=== PATIENT | male | born 1945 | race Caucasian/White ===

== ENCOUNTER 2017-07-12 10:18 | Emergency (ER) | payer MEDICARE ==
[2017-07-12 10:42] VITALS: BP 146/72
--- NOTE | 2017-07-12 11:26 | EDM.PDOC ---
ED HPI GENERAL MEDICAL PROBLEM - General Chief Complaint: Lower Extremity Injury/Pain Stated Complaint: LEFT HIP PAIN Time Seen by Provider: 07/12/17 11:17 Source of Information: Reports: Patient, RN Notes Reviewed History Limitations: Reports: No Limitations - History of Present Illness INITIAL COMMENTS - FREE TEXT/NARRATIVE: 72-year-old gentleman presents emergency department day complaint of left hip pain, he states he may have had a twisting injury but denies any specific trauma no numbness and tingling in the foot he can ambulate uses hydrocodone to control the pain Left Hip Pain Score (Numeric/FACES): 6 - Related Data Allergies Allergy/AdvReac Type Severity Reaction Status Date / Time codeine Allergy Rash Verified 03/16/16 10:57 Home Meds: Home Meds Amiodarone HCl [Pacerone] 200 mg PO DAILY 07/20/13 [History] Amphetamine/Dextroamphetamine [Adderall XR] 10 mg PO DAILY 07/20/13 [History] Hydrocodone/Acetaminophen [Hydrocodon-Acetaminophn 10-325] 1 each PO TID PRN [History] Mirtazapine 45 mg PO BEDTIME 07/20/13 [History] Pregabalin [Lyrica] 150 mg PO DAILY 01/08/15 [History] ARIPiprazole [Abilify] 20 mg PO DAILY 03/16/16 [History] Albuterol Sulfate [Proair Respiclick] 90 mcg IH PRN 03/16/16 [History] Ascorbic Acid [Vitamin C] 1,000 mg PO DAILY 03/16/16 [History] Cholecalciferol (Vitamin D3) [Vitamin D3] 2,000 unit PO DAILY 03/16/16 [History] Dabigatran [Pradaxa] 150 mg PO BID 03/16/16 [History] Tiotropium [Spiriva Handihaler] 18 mcg INH DAILY 03/16/16 [History] ClonazePAM [KlonoPIN] 1 mg PO BEDTIME 03/17/16 [History] Tamsulosin [Flomax] 0.8 mg PO DAILY #14 cap.er 03/17/16 [Rx] Venlafaxine [Effexor XR] 300 mg PO DAILY #14 cap.er 03/17/16 [Rx] Past Medical History HEENT History: Reports: Impaired Vision Cardiovascular History: Reports: Arrhythmia Other Cardiovascular History: Cardiac Abalation. Atrial fibrillation Respiratory History: Reports: Bronchitis, Recurrent, COPD Other Respiratory History: Intubation, aspiration pneumonia 2013 Gastrointestinal History: Reports: Chronic Constipation Other Gastrointestinal History: Colitis Genitourinary History: Reports: Prostate Disorder Musculoskeletal History: Reports: Back Pain, Chronic Other Musculoskeletal History: Neuropathy Neurological History: Reports: Neuropathy, Peripheral Psychiatric History: Reports: Addiction, Bipolar, Depression Other Psychiatric History: Alcohol dependence, withdrawal Hematologic History: Reports: Anticoagulation Therapy Other Hematologic History: Takes pradaxa Oncologic (Cancer) History: Reports: Lung, Prostate - Past Surgical History HEENT Surgical History: Reports: Other (See Below) Social & Family History - Family History Cardiac: Reports: Hypertension, [place] Psychiatric: Reports: Depression Oncologic: Reports: Lung - Tobacco Use Smoking Status *Q: Light Tobacco Smoker Years of Tobacco use: 50 Packs/Tins Daily: 0.5 Used Tobacco, but Quit: No Second Hand Smoke Exposure: Yes - Caffeine Use Caffeine Use: Reports: None - Alcohol Use Days Per Week of Alcohol Use: 7 Number of Drinks Per Day: 6 Total Drinks Per Week: 42 - Recreational Drug Use Recreational Drug Use: No Recreational Drug Type: Reports: Amphetamines (Speed) Review of Systems - Review of Systems Review Of Systems: See Below Constitutional: Reports: No Symptoms Respiratory: Reports: No Symptoms Cardiovascular: Reports: No Symptoms Musculoskeletal: Reports: Joint Pain ED EXAM, GENERAL - Physical Exam Exam: See Below Free Text/Narrative:: Examination of the left hip I don't appreciate any erythema or edema over the hip he is tender to palpation superior to the greater trochanter there is no tenderness with internal or external rotation. Course - Vital Signs Last Recorded V/S: Last Vital Signs Temp 95.9 F 07/12/17 10:42 Pulse 93 07/12/17 10:42 Resp 16 07/12/17 10:42 BP 146/72 H 07/12/17 10:42 Pulse Ox 98 07/12/17 10:42 Departure - Departure Time of Disposition: 13:04 Disposition: Home, Self-Care 01 Condition: Good Clinical Impression: Strain of left hip Qualifiers: Encounter type: initial encounter Qualified Code(s): S76.012A - Strain of muscle, fascia and tendon of left hip, initial encounter - Discharge Information Referrals: Lazaro Gaxiola MD [Primary Care Provider] - Forms: ED Department Discharge Additional Instructions: Use ibuprofen for baseline pain control, use hydrocodone as needed for breakthrough pain, Please followup with your primary care provider in 3-5 days if not better, please call return to the emergency department with worsening of symptoms. - Assessment/Plan Plan: Assessment Acuity = acute Site and laterality = left hip strain Etiology = secondary to twisting injury Manifestations = pain Location of injury = Home Lab values = x-ray shows minimal degenerative joint disease Plan I did review films with him provided him 10 hydrocodone 5/325 one tablet every 6 hours as needed Patient was in agreement with the plan all questions were answered, they were instructed to return to the emergency department or call for worsening symptoms. This note was dictated using [employer] voice recognition software please call with any questions.
--- NOTE | 2017-07-12 11:49 | CR ---
Hip Min 2V or 3V Lt HISTORY: Pain COMPARISON: CT scan 2012. FINDINGS: Minimal degenerative change. Good joint space preservation. There is no acute fracture or d islocation.
== END 2017-07-12 13:27 | disposition home or self-care (01) ==
LOC: JP.ED 10:18
DX: S76.012A Strain of muscle, fascia and tendon of left hip, initial encounter (principal); I48.91 Unspecified atrial fibrillation; J44.9 Chronic obstructive pulmonary disease, unspecified; G62.9 Polyneuropathy, unspecified; F31.9 Bipolar disorder, unspecified; F17.210 Nicotine dependence, cigarettes, uncomplicated; Z85.118 Personal history of other malignant neoplasm of bronchus and lung; Z85.46 Personal history of malignant neoplasm of prostate; Z79.899 Other long term (current) drug therapy; Z88.5 Allergy status to narcotic agent; W18.40XA Slipping, tripping and stumbling without falling, unspecified, initial encounter; Y92.009 Unspecified place in unspecified non-institutional (private) residence as the place of occurrence of the external cause
CPT/HCPCS: 73502-26-LT; 73502-LT; 99284

== ENCOUNTER 2020-04-25 08:30 | Emergency (ER) | payer OTHER, MEDICARE ==
--- NOTE | 2020-04-25 08:59 | EDM.PDOC ---
ED HPI GENERAL MEDICAL PROBLEM - General Chief Complaint: Cardiovascular Problem Stated Complaint: CHEST PAIN Time Seen by Provider: 04/25/20 08:59 Source of Information: Reports: Patient History Limitations: Reports: No Limitations - History of Present Illness INITIAL COMMENTS - FREE TEXT/NARRATIVE: pt arrived with a history of chest pain 2 days ago. He has no pain today. [facility] be [facility]. He has a history of atrial fib and he has had 2 ablations for that. Onset: Other (pt had the chest pain 2 days ago. ) Duration: Hour(s): Location: Reports: Chest Associated Symptoms: Reports: Chest Pain, Shortness of Breath, Other (pt has copd and a history of atrial fib. ) - Related Data Allergies Allergy/AdvReac Type Severity Reaction Status Date / Time codeine Allergy Rash Verified 04/25/20 08:56 Home Meds: Home Meds Amiodarone HCl [Pacerone] 200 mg PO DAILY 07/20/13 [History] Amphetamine/Dextroamphetamine [Adderall XR] 10 mg PO DAILY 07/20/13 [History] Mirtazapine 45 mg PO BEDTIME 07/20/13 [History] Pregabalin [Lyrica] 100 mg PO TID 01/08/15 [History] ARIPiprazole [Abilify] 10 mg PO DAILY 03/16/16 [History] Albuterol Sulfate [Proair Respiclick] 90 mcg IH ASDIRECTED PRN 03/16/16 [History] Dabigatran [Pradaxa] 150 mg PO BID 03/16/16 [History] Tiotropium [Spiriva Handihaler] 18 mcg INH DAILY 03/16/16 [History] Tamsulosin [Flomax] 0.8 mg PO DAILY #14 cap.er 03/17/16 [Rx] Venlafaxine [Effexor XR] 300 mg PO DAILY #14 cap.er 03/17/16 [Rx] Hydrocodone/Acetaminophen [Hydrocodon-Acetaminoph 7.5-325] 2 each PO TID 04/25/20 [History] Past Medical History HEENT History: Reports: Impaired Vision Cardiovascular History: Reports: Arrhythmia Other Cardiovascular History: Cardiac Abalation. Atrial fibrillation Respiratory History: Reports: Bronchitis, Recurrent, COPD Other Respiratory History: Intubation, aspiration pneumonia 2012 Gastrointestinal History: Reports: Chronic Constipation Other Gastrointestinal History: Colitis Genitourinary History: Reports: Prostate Disorder Musculoskeletal History: Reports: Back Pain, Chronic Other Musculoskeletal History: Neuropathy Neurological History: Reports: Neuropathy, Peripheral Psychiatric History: Reports: Addiction, Bipolar, Depression Other Psychiatric History: Alcohol dependence, withdrawal Hematologic History: Reports: Anticoagulation Therapy Other Hematologic History: Takes pradaxa Oncologic (Cancer) History: Reports: Lung, Prostate - Past Surgical History HEENT Surgical History: Reports: Other (See Below) Social & Family History - Family History Cardiac: Reports: Hypertension, [place] Psychiatric: Reports: Depression Oncologic: Reports: Lung - Caffeine Use Caffeine Use: Reports: None ED ROS GENERAL - Review of Systems Review Of Systems: See Below Constitutional: Reports: No Symptoms HEENT: Reports: No Symptoms Respiratory: Reports: Shortness of Breath, Wheezing Cardiovascular: Reports: Chest Pain, Dyspnea on Exertion, Other (history of atrial fib. ) Endocrine: Reports: No Symptoms GI/Abdominal: Reports: No Symptoms : Reports: No Symptoms Musculoskeletal: Reports: No Symptoms Skin: Reports: No Symptoms Neurological: Reports: No Symptoms ED EXAM, GENERAL - Physical Exam Exam: See Below Free Text/Narrative:: pt arrived with a history of chest pain 2-3 days ago. This did last about 5 minutes. He has not had recurrent Exam Limited By: No Limitations General Appearance: Alert, Mild Distress Ears: Normal TMs Nose: Normal Inspection Throat/Mouth: Normal Inspection Head: Atraumatic Neck: Normal Inspection Respiratory/Chest: No Respiratory Distress, Other (pt does have rhonchi and wheezing bilateral. ) Cardiovascular: Irregularly Irregular GI/Abdominal: Soft, Non-Tender (Male) Exam: Deferred Rectal (Males) Exam: Deferred Back Exam: Normal Inspection Extremities: Normal Inspection, Other (pt has edema) Neurological: Alert, Oriented, Normal Cognition Psychiatric: Normal Affect Course - Vital Signs Last Recorded V/S: Last Vital Signs Temp 36.7 C 04/25/20 08:53 Pulse 81 04/25/20 08:53 Resp 19 04/25/20 08:53 BP 113/62 04/25/20 08:53 Pulse Ox 99 04/25/20 08:53 - Orders/Labs/Meds Orders: Active Orders 24 hr Category Date Time Status EKG Documentation Completion [RC] ASDIRECTED Care 04/25/20 08:48 Active RT Aerosol Therapy [RC] ASDIRECTED Care 04/25/20 10:24 Active Chest 1V Frontal [CR] Stat Exams 04/25/20 09:23 Taken EKG 12 Lead [EK] Routine Ther 04/25/20 08:48 Ordered Labs: Laboratory Tests 04/25/20 04/25/20 04/25/20 Range/Units 08:59 08:59 08:59 WBC 6.3 (4.5-11.0) K/uL RBC 3.87 L (4.30-5.90) M/uL Hgb 12.2 (12.0-15.0) g/dL Hct 39.0 L (40.0-54.0) % MCV 101 H (80-98) fL MCH 32 H (27-31) pg MCHC 31 L (32-36) % Plt Count 204 (150-400) K/uL Neut % (Auto) 71 H (36-66) % Lymph % (Auto) 16 L (24-44) % [place] % (Auto) 9 H (2-6) % Eos % (Auto) 3 (2-4) % Baso % (Auto) 1 (0-1) % Sodium 142 (140-148) mmol/L Potassium 4.5 (3.6-5.2) mmol/L Chloride 104 (100-108) mmol/L Carbon Dioxide 31 (21-32) mmol/L Anion Gap 7.3 (5.0-14.0) mmol/L BUN 19 H (7-18) mg/dL Creatinine 1.7 H D (0.8-1.3) mg/dL Est Cr Clr Drug Dosing 42.48 mL/min Estimated GFR (MDRD) 40 L (>60) Glucose 200 H (74-106) mg/dL Calcium 8.6 (8.5-10.1) mg/dL Total Bilirubin 0.4 (0.2-1.0) mg/dL AST 13 L (15-37) U/L ALT 26 (12-78) U/L Alkaline Phosphatase 98 (46-116) U/L Troponin I < 0.017 (0.000-0.056) ng/mL NT-Pro-B Natriuret Pep 322 H (5-125) pg/mL Total Protein 6.8 (6.4-8.2) g/dL Albumin 3.2 L (3.4-5.0) g/dL Globulin 3.6 H (2.3-3.5) g/dL Albumin/Globulin Ratio 0.9 L (1.2-2.2) Meds: Medications Discontinued Medications Generic Name Dose Route Start Last Admin Trade Name Rahel PRN Reason Stop Dose Admin Albuterol 2.5 mg 04/25/20 10:24 04/25/20 10:46 Proventil Neb Soln NEB 04/25/20 10:25 2.5 mg ONETIME ONE Administration - Re-Assessments/Exams Free Text/Narrative Re-Assessment/Exam: 04/25/20 10:47 pt has continued to have no pain. He had a trop that was neg. His ekg showed atrial fib with a controlled response. Pt did have a bs of 200. He has not been taking any diabetic meds and following a diet or checking his sugars. 04/25/20 10:49 Departure - Departure Time of Disposition: 10:51 Disposition: Home, Self-Care 01 Condition: Fair Clinical Impression: Chest pain, SOB (shortness of breath) on exertion Referrals: Lazaro Gaxiola MD [Primary Care Provider] - Forms: ED Department Discharge Care Plan Goals: follow up appt at the [facility] regarding his diabetic care, rtc if he should have increased chest pain, albuterol inhaler 2 puffs tid for wheezing, start diabetic diet and start checking bs regularly. Sepsis Event Note (ED) - Evaluation Sepsis Screening Result: No Definite Risk - Focused Exam Vital Signs: Vital Signs Temp Pulse Resp BP Pulse Ox 04/25/20 08:53 36.7 C 81 19 113/62 99 - My Orders Last 24 Hours: My Active Orders 04/25/20 08:48 EKG Documentation Completion [RC] ASDIRECTED EKG 12 Lead [EK] Routine 04/25/20 09:23 Chest 1V Frontal [CR] Stat 04/25/20 10:24 RT Aerosol Therapy [RC] ASDIRECTED - Assessment/Plan Last 24 Hours: My Active Orders 04/25/20 08:48 EKG Documentation Completion [RC] ASDIRECTED EKG 12 Lead [EK] Routine 04/25/20 09:23 Chest 1V Frontal [CR] Stat 04/25/20 10:24 RT Aerosol Therapy [RC] ASDIRECTED
[2020-04-25] MEDS ORDERED: Albuterol 0.083% 2.5 MG/3 ML Neb Soln NEB ONE (10:24)
[2020-04-25 11:43] VITALS: BP 112/59; PULSE 66
--- NOTE | 2020-04-27 09:18 | CR ---
CHEST: Portable 04/25/2020 9:37 AM CLINICAL HISTORY:Chest pain on right COMPARISON:2016 FINDINGS: The heart size, pulmonary vascularity and hilar structures are normal. No infiltrate effusion or pneumothorax is seen. There is chronic elevation left hemidiaphragm. There are atherosclerotic changes in the aorta. There is an old right eighth rib fracture IMPRESSION: No acute cardiopulmonary process.
== END 2020-04-25 11:44 | disposition home or self-care (01) ==
LOC: JP.ED 08:30
DX: R07.9 Chest pain, unspecified (principal); R06.02 Shortness of breath; I48.91 Unspecified atrial fibrillation; J44.9 Chronic obstructive pulmonary disease, unspecified; F31.9 Bipolar disorder, unspecified; F41.9 Anxiety disorder, unspecified; G62.9 Polyneuropathy, unspecified; Z88.5 Allergy status to narcotic agent; Z79.899 Other long term (current) drug therapy; Z79.01 Long term (current) use of anticoagulants
CPT/HCPCS: 36415; 71045; 71045-26; 80053; 83880; 84484; 85025; 93005; 93010; 94640; 99285-25

== ENCOUNTER 2022-06-25 14:29 | Emergency (ER) | payer MEDICARE, OTHER ==
[2022-06-25 16:37] VITALS: BP 119/74; PULSE 87
== END 2022-06-25 17:15 | disposition home or self-care (01) ==
LOC: JP.ED 14:29
DX: L72.3 Sebaceous cyst (principal); J44.9 Chronic obstructive pulmonary disease, unspecified; I48.91 Unspecified atrial fibrillation; E66.9 Obesity, unspecified; Z68.30 Body mass index [BMI] 30.0-30.9, adult; Z88.5 Allergy status to narcotic agent; Z79.899 Other long term (current) drug therapy
CPT/HCPCS: 99282

== ENCOUNTER 2023-02-21 10:50 | Emergency (ER) | payer MEDICARE ==
[2023-02-21 11:06] VITALS: BP 96/60; PULSE 87
[2023-02-21] MEDS ORDERED: Sodium Chloride 0.9% 10 ML Syringe FLUSH PRN (11:15)
[2023-02-21] MEDS ORDERED: Clindamycin in 0.9 % Sod Chlor 900 MG in Premix Bag 1 BAG IV ONE ×2 (11:15)
[2023-02-21] MEDS ORDERED: Ketorolac 30 MG/ML SDV IVPUSH ONE (11:15)
[2023-02-21] MEDS ORDERED: SOD CHLOR 0.9% ONE (11:31)
[2023-02-21] MEDS ORDERED: CLINDAMYCIN ONE (11:31)
== END 2023-02-21 13:12 | disposition home or self-care (01) ==
LOC: JP.ED 10:50
DX: A69.1 Other Vincent's infections (principal); G89.18 Other acute postprocedural pain; J44.9 Chronic obstructive pulmonary disease, unspecified; E66.9 Obesity, unspecified; Z68.30 Body mass index [BMI] 30.0-30.9, adult; Z88.5 Allergy status to narcotic agent; Z79.899 Other long term (current) drug therapy
CPT/HCPCS: 36415; 80048; 85025; 86140; 96365; 96375; 99283; J1885; J3490

== ENCOUNTER 2023-02-24 21:01 | Emergency (ER) | payer MEDICARE ==
[2023-02-24 21:14] VITALS: BP 137/73; PULSE 100
[2023-02-24] MEDS ORDERED: Tranexamic Acid 1,000 MG/10 ML Vial TOP ONE (21:43)
[2023-02-24] MEDS ORDERED: fentaNYL 100 MCG/2 ML SDV IM ONE (21:44)
[2023-02-24] MEDS ORDERED: Lidocaine 1% with EPINEPHrine 1:100,000 50 ML MDV SUBCUT STA (23:00)
[2023-02-24] MEDS ORDERED: Lidocaine/Epineph/Tetracaine 3 ML Syringe TOP ONE (23:05)
== END 2023-02-24 23:51 | disposition home or self-care (01) ==
LOC: JP.ED 21:01
DX: K91.841 Postprocedural hemorrhage of a digestive system organ or structure following other procedure (principal); J44.9 Chronic obstructive pulmonary disease, unspecified; I48.91 Unspecified atrial fibrillation; E66.9 Obesity, unspecified; Z68.28 Body mass index [BMI] 28.0-28.9, adult; Z88.5 Allergy status to narcotic agent
CPT/HCPCS: 96372; 99283; A9270; J3010

== ENCOUNTER 2023-04-26 14:45 | Emergency (ER) | payer MEDICARE, OTHER ==
[2023-04-26 18:00] VITALS: BP 124/72; PULSE 72
== END 2023-04-26 18:40 | disposition home or self-care (01) ==
LOC: JP.ED 14:45
DX: I50.9 Heart failure, unspecified (principal); J44.9 Chronic obstructive pulmonary disease, unspecified; I48.91 Unspecified atrial fibrillation; E66.9 Obesity, unspecified; Z68.25 Body mass index [BMI] 25.0-25.9, adult; Z88.5 Allergy status to narcotic agent; Z79.01 Long term (current) use of anticoagulants; Z87.891 Personal history of nicotine dependence
CPT/HCPCS: 71046; 71046-26; 99284

== ENCOUNTER 2023-04-28 20:04 | Emergency (ER) | payer OTHER, MEDICARE ==
[2023-04-28 20:35] LABS: BASOPHILS ABSOLUTE AUTO 0.04 K/uL (0.00-0.10); BASOPHILS PERCENT AUTO 0.5 % (0.1-1.3); EOSINOPHILS PERCENT AUTO 2.4 % (0.0-5.4); HEMATOCRIT 36.4 % (38.4-49.7); HEMOGLOBIN 11.6 g/dL (12.9-16.9); IMMATURE GRAN ABSOLUTE AUTO 0.03 K/uL (0.00-0.23); IMMATURE GRAN PERCENT AUTO 0.4 % (0.0-0.7); LYMPHOCYTES ABSOLUTE AUTO 1.01 K/uL (0.8-3.3); MEAN CORPUSCULAR HEMOGLOBIN 30.3 pg (31.6-35.5); MEAN CORPUSCULAR HGB CONC 31.9 g/dL (31.6-35.5); MONOCYTES PERCENT AUTO 7.1 % (3.3-12.6); NEUTROPHILS ABSOLUTE AUTO 6.57 K/uL (1.0-7.6); NEUTROPHILS PERCENT AUTO 77.6 % (40.0-78.1); PLATELET COUNT,PLT 212 K/uL (130-375); RED BLOOD CELL COUNT 3.83 M/uL (4.14-5.76); WHITE BLOOD CELL COUNT,WBC 8.5 K/uL (3.2-11.0)
[2023-04-28 20:57] LABS: A/G RATIO 0.6 (1.2-2.2); ALANINE AMINOTRANSFERASE,ALT 45 U/L (12-78); ALBUMIN 2.9 g/dL (3.4-5.0); ALKALINE PHOSPHATASE 104 U/L (46-116); ANION GAP 9.8 mmol/L (5.0-14.0); ASPARTATE AMNIOTRANSFERASE,AST 25 U/L (15-37); BILIRUBIN TOTAL 0.3 mg/dL (0.2-1.0); BLOOD UREA NITROGEN,BUN 27 mg/dL (7-18); C-REACTIVE PROTEIN 0.52 mg/dL (0.0-0.3); CARBON DIOXIDE,CO2 29 mmol/L (21-32); CHLORIDE,CL 102 mmol/L (100-108); CREATININE 1.6 mg/dL (0.8-1.3); EST CRCL DRUG DOSING (CG) 43.11 mL/min; ESTIMATED GFR 44 mL/min (>60); GLUCOSE RANDOM 259 mg/dL (74-106); POTASSIUM,K 4.2 mmol/L (3.6-5.2); PRO B-TYPE NATRIUR PEPT,BNPPRO 296 pg/mL (5-450); PROTEIN TOTAL,TP 7.5 g/dL (6.4-8.2); SODIUM,NA 141 mmol/L (140-148); TROPONIN I HIGH SENSITIVITY 24.2 pg/mL (<=60.3)
[2023-04-28 22:36] VITALS: BP 118/71; PULSE 78
[2023-04-28] MEDS ORDERED: Dexamethasone 4 MG/ML SDV IVPUSH STA (22:36)
== END 2023-04-29 01:04 | disposition home or self-care (01) ==
LOC: JP.ED 20:04
DX: J20.9 Acute bronchitis, unspecified (principal); J44.0 Chronic obstructive pulmonary disease with (acute) lower respiratory infection; R53.1 Weakness; I48.91 Unspecified atrial fibrillation; E66.9 Obesity, unspecified; Z88.5 Allergy status to narcotic agent; Z68.25 Body mass index [BMI] 25.0-25.9, adult
CPT/HCPCS: 36415; 71046; 80053; 83880; 84145; 84484; 85025; 86140; 93005; 96374; 99285; J1100

== ENCOUNTER 2024-08-24 12:00 | Emergency (ER) | payer MEDICARE, OTHER ==
[2024-08-24 13:34] LABS: BASOPHILS ABSOLUTE AUTO 0.05 K/uL (0.00-0.10); BASOPHILS PERCENT AUTO 0.3 % (0.1-1.3); EOSINOPHILS PERCENT AUTO 0.1 % (0.0-5.4); HEMATOCRIT 36.4 % (38.4-49.7); HEMOGLOBIN 11.9 g/dL (12.9-16.9); IMMATURE GRAN ABSOLUTE AUTO 0.12 K/uL (0.00-0.23); IMMATURE GRAN PERCENT AUTO 0.7 % (0.0-0.7); LYMPHOCYTES ABSOLUTE AUTO 0.87 K/uL (0.8-3.3); LYMPHOCYTES PERCENT AUTO 4.7 % (11.4-47.7); MEAN CORPUSCULAR HEMOGLOBIN 31.3 pg (31.6-35.5); MEAN CORPUSCULAR HGB CONC 32.7 g/dL (31.6-35.5); MEAN CORPUSCULAR VOLUME 95.8 fL (81.4-99.0); MONOCYTES ABSOLUTE AUTO 1.82 K/uL (0.20-0.90); MONOCYTES PERCENT AUTO 9.9 % (3.3-12.6); NEUTROPHILS ABSOLUTE AUTO 15.44 K/uL (1.0-7.6); NEUTROPHILS PERCENT AUTO 84.3 % (40.0-78.1); PLATELET COUNT,PLT 151 K/uL (130-375); WHITE BLOOD CELL COUNT,WBC 18.3 K/uL (3.2-11.0)
[2024-08-24 13:35] LABS: EOSINOPHILS ABSOLUTE AUTO 0.02 K/uL (0.00-0.40)
[2024-08-24 13:58] LABS: A/G RATIO 0.6 (1.2-2.2); ALANINE AMINOTRANSFERASE,ALT 24 U/L (12-78); ALBUMIN 2.6 g/dL (3.4-5.0); ALKALINE PHOSPHATASE 86 U/L (46-116); ASPARTATE AMNIOTRANSFERASE,AST 12 U/L (15-37); BILIRUBIN TOTAL 0.9 mg/dL (0.2-1.0); BLOOD UREA NITROGEN,BUN 30 mg/dL (7-18); CALCIUM 9.2 mg/dL (8.5-10.1); CARBON DIOXIDE,CO2 33 mmol/L (21-32); CHLORIDE,CL 101 mmol/L (100-108); CREATININE 1.8 mg/dL (0.8-1.3); EST CRCL DRUG DOSING (CG) 37.72 mL/min; ESTIMATED GFR 38 mL/min (>60); GLUCOSE RANDOM 200 mg/dL (74-106); POTASSIUM,K 4.6 mmol/L (3.6-5.2); SODIUM,NA 140 mmol/L (140-148); TROPONIN I HIGH SENSITIVITY 22.1 pg/mL (<=60.3)
[2024-08-24 14:04] LABS: ANION GAP 10.6 mmol/L (5.0-14.0)
[2024-08-24 15:33] VITALS: BP 105/55; PULSE 86
[2024-08-24 15:48] LABS: APPEARANCE,URINE CLEAR (CLEAR); BILIRUBIN,URINE NEGATIVE (NEGATIVE); COLOR,URINE YELLOW (YELLOW); GLUCOSE,URINE 500 mg/dL (NEGATIVE); KETONES,URINE NEGATIVE (NEGATIVE); LEUKOCYTE ESTERASE,URINE NEGATIVE (NEGATIVE); NITRITE,URINE NEGATIVE (NEGATIVE); OCCULT BLOOD,URINE SMALL (NEGATIVE); PROTEIN,URINE NEGATIVE (NEGATIVE); UROBILINOGEN,URINE 0.2 EU/dL (0.2-1.0)
[2024-08-24 15:56] LABS: AMORPHOUS SEDIMENT,URINE RARE; BACTERIA,URINE NOT SEEN; EPITHELIAL CELLS,URINE NOT SEEN; MUCUS,URINE NOT SEEN; WBC,URINE NOT SEEN (0-5)
== END 2024-08-24 16:29 | disposition home or self-care (01) ==
LOC: JP.ED 12:00
DX: R41.3 Other amnesia (principal); I48.91 Unspecified atrial fibrillation; E78.00 Pure hypercholesterolemia, unspecified; E11.40 Type 2 diabetes mellitus with diabetic neuropathy, unspecified; E66.9 Obesity, unspecified; Z79.01 Long term (current) use of anticoagulants; Z79.899 Other long term (current) drug therapy; Z79.4 Long term (current) use of insulin; Z79.84 Long term (current) use of oral hypoglycemic drugs; Z79.82 Long term (current) use of aspirin; Z88.5 Allergy status to narcotic agent; Z79.891 Long term (current) use of opiate analgesic; Z68.26 Body mass index [BMI] 26.0-26.9, adult
CPT/HCPCS: 36415; 70450; 80053; 81001; 82947; 83605; 84484; 85025; 99284; 99285

== ENCOUNTER 2025-07-16 17:43 | Emergency (ER) | payer OTHER, MEDICARE ==
[2025-07-16 18:22] VITALS: BP 118/58; PULSE 81
[2025-07-16 18:55] LABS: BASOPHILS PERCENT AUTO 0.1 % (0.1-1.3); EOSINOPHILS PERCENT AUTO 0.1 % (0.0-5.4); IMMATURE GRAN ABSOLUTE AUTO 0.11 K/uL (0.00-0.23); IMMATURE GRAN PERCENT AUTO 0.8 % (0.0-0.7); LYMPHOCYTES ABSOLUTE AUTO 0.91 K/uL (0.8-3.3); LYMPHOCYTES PERCENT AUTO 6.7 % (11.4-47.7); MONOCYTES ABSOLUTE AUTO 1.04 K/uL (0.20-0.90); MONOCYTES PERCENT AUTO 7.7 % (3.3-12.6); NEUTROPHILS ABSOLUTE AUTO 11.45 K/uL (1.0-7.6); NEUTROPHILS PERCENT AUTO 84.6 % (40.0-78.1); PLATELET COUNT,PLT 185 K/uL (130-375); RED BLOOD CELL COUNT 3.80 M/uL (4.14-5.76); WHITE BLOOD CELL COUNT,WBC 13.5 K/uL (3.2-11.0)
[2025-07-16 18:59] LABS: BASOPHILS ABSOLUTE AUTO 0.01 K/uL (0.00-0.10); EOSINOPHILS ABSOLUTE AUTO 0.01 K/uL (0.00-0.40)
[2025-07-16 19:16] LABS: A/G RATIO 0.8 (1.2-2.2); ALANINE AMINOTRANSFERASE,ALT 78 U/L (12-78); ASPARTATE AMNIOTRANSFERASE,AST 23 U/L (15-37); BILIRUBIN TOTAL 0.4 mg/dL (0.2-1.0); BLOOD UREA NITROGEN,BUN 40 mg/dL (7-18); CARBON DIOXIDE,CO2 32 mmol/L (21-32); CHLORIDE,CL 96 mmol/L (100-108); CREATININE 1.8 mg/dL (0.8-1.3); EST CRCL DRUG DOSING (CG) 37.12 mL/min; ESTIMATED GFR 38 mL/min (>60); GLUCOSE RANDOM 393 mg/dL (74-106); POTASSIUM,K 4.8 mmol/L (3.6-5.2); PROTEIN TOTAL,TP 6.6 g/dL (6.4-8.2); SODIUM,NA 133 mmol/L (140-148)
[2025-07-16] MEDS ORDERED: 50% Dextrose in Water 50 ML Syringe IVPUSH PRN (19:19)
[2025-07-16 19:22] LABS: APPEARANCE,URINE CLEAR (CLEAR); GLUCOSE,URINE 500 mg/dL (NEGATIVE); OCCULT BLOOD,URINE TRACE-INTACT (NEGATIVE)
[2025-07-16 19:24] LABS: SQUAMOUS EPITHELIAL CELLS,UR FEW /HPF; UROTHELIAL CELLS,URINE NOT SEEN /HPF
[2025-07-16] MEDS: Insulin Regular, Human 100 Units/ML 10 ML Vial SUBCUT ONE (19:58)
== END 2025-07-16 22:10 | disposition home or self-care (01) ==
LOC: JP.ED 17:43
DX: J18.9 Pneumonia, unspecified organism (principal); E11.65 Type 2 diabetes mellitus with hyperglycemia; I48.91 Unspecified atrial fibrillation; E11.40 Type 2 diabetes mellitus with diabetic neuropathy, unspecified; E66.9 Obesity, unspecified; E78.00 Pure hypercholesterolemia, unspecified; J45.909 Unspecified asthma, uncomplicated; Z79.899 Other long term (current) drug therapy; Z79.01 Long term (current) use of anticoagulants; Z88.5 Allergy status to narcotic agent
CPT/HCPCS: 36415; 71046; 80053; 81001; 82947; 85025; 96360; 96361; 99285; A9270; J7030; 99284

== ENCOUNTER 2025-07-30 10:00 | Emergency (ER) | payer MEDICARE, OTHER ==
[2025-07-30 10:46] LABS: BASOPHILS PERCENT AUTO 0.2 % (0.1-1.3); EOSINOPHILS ABSOLUTE AUTO 0.19 K/uL (0.00-0.40); EOSINOPHILS PERCENT AUTO 2.2 % (0.0-5.4); IMMATURE GRAN ABSOLUTE AUTO 0.07 K/uL (0.00-0.23); IMMATURE GRAN PERCENT AUTO 0.8 % (0.0-0.7); LYMPHOCYTES ABSOLUTE AUTO 0.45 K/uL (0.8-3.3); LYMPHOCYTES PERCENT AUTO 5.3 % (11.4-47.7); MONOCYTES ABSOLUTE AUTO 0.74 K/uL (0.20-0.90); MONOCYTES PERCENT AUTO 8.7 % (3.3-12.6); NEUTROPHILS ABSOLUTE AUTO 7.00 K/uL (1.0-7.6); NEUTROPHILS PERCENT AUTO 82.8 % (40.0-78.1); PLATELET COUNT,PLT 170 K/uL (130-375); RED BLOOD CELL COUNT 3.70 M/uL (4.14-5.76); WHITE BLOOD CELL COUNT,WBC 8.5 K/uL (3.2-11.0)
[2025-07-30 10:48] LABS: BASOPHILS ABSOLUTE AUTO 0.02 K/uL (0.00-0.10)
[2025-07-30 11:16] LABS: A/G RATIO 0.6 (1.2-2.2); ALANINE AMINOTRANSFERASE,ALT 31 U/L (12-78); ASPARTATE AMNIOTRANSFERASE,AST 26 U/L (15-37); BILIRUBIN TOTAL 0.5 mg/dL (0.2-1.0); BLOOD UREA NITROGEN,BUN 31 mg/dL (7-18); CARBON DIOXIDE,CO2 34 mmol/L (21-32); CHLORIDE,CL 102 mmol/L (100-108); CREATININE 1.8 mg/dL (0.8-1.3); EST CRCL DRUG DOSING (CG) 37.12 mL/min; ESTIMATED GFR 38 mL/min (>60); GLUCOSE RANDOM 293 mg/dL (74-106); POTASSIUM,K 5.4 mmol/L (3.6-5.2); PRO B-TYPE NATRIUR PEPT,BNPPRO 2735 pg/mL (5-450); PROTEIN TOTAL,TP 7.2 g/dL (6.4-8.2); SODIUM,NA 140 mmol/L (140-148)
[2025-07-30 15:29] LABS: APPEARANCE,URINE CLEAR (CLEAR); GLUCOSE,URINE 500 mg/dL (NEGATIVE); OCCULT BLOOD,URINE NEGATIVE (NEGATIVE)
[2025-07-30 15:43] LABS: SQUAMOUS EPITHELIAL CELLS,UR NOT SEEN /HPF; UROTHELIAL CELLS,URINE NOT SEEN /HPF
[2025-07-30] MEDS: Iopamidol 755 Mg/ML 100 ML Bottle IV SCH (16:40)
[2025-07-30 18:37] VITALS: BP 97/47; PULSE 85
== END 2025-07-30 18:56 | disposition home or self-care (01) ==
LOC: JP.ED 10:00
DX: J18.9 Pneumonia, unspecified organism (principal); R53.1 Weakness; R33.9 Retention of urine, unspecified; I48.91 Unspecified atrial fibrillation; E78.00 Pure hypercholesterolemia, unspecified; J44.9 Chronic obstructive pulmonary disease, unspecified; E11.9 Type 2 diabetes mellitus without complications; E66.9 Obesity, unspecified; Z68.27 Body mass index [BMI] 27.0-27.9, adult; Z88.5 Allergy status to narcotic agent; Z79.4 Long term (current) use of insulin; Z79.01 Long term (current) use of anticoagulants; Z79.899 Other long term (current) drug therapy
CPT/HCPCS: 36415; 71045; 71275; 80053; 81001; 83880; 85025; 93005; 93010; 99284; 99285; A4216; A9270; C1758; Q9967